=== PATIENT | female | born 2005 | race Asian ===

== ENCOUNTER 2024-08-15 06:36 | Outpatient (REF) | payer BC, SELFPAY ==
--- NOTE | ~2024-08-15 | US_ITS ---
CLINICAL HISTORY: IRREGULAR BLEEDING BETWEEN PERIODS US pelvis transabdominal with Doppler Comparison: None Findings: Transabdominal scanning performed with Doppler. Anteverted uterus is 8.2 cm length. Normal myometrium. Endometrium 7.2 mm thickness. Right ovary 3.5 x 1.8 x 1.5 cm. Left ovary 3 x 1.1 x 1.1 cm. Normal color Doppler with arterial/venous spectral tracing of both ovaries. No free fluid. IMPRESSION: 1. Unremarkable pelvic ultrasound with no evidence of ovarian torsion. This document has been electronically signed by: Nighat Oh MD on 08/15/2024 23:00:41
== END 2024-08-15 06:37 | disposition home or self-care (01) ==
LOC: HO.UMASIMG 06:36
PROVIDERS: Visit Provider Nurse Practitioner Women's Health
DX: N92.6 Irregular menstruation, unspecified (principal)
CPT/HCPCS: 76856